=== PATIENT | male | born 1930 | race Caucasian/White ===

== ENCOUNTER 2016-03-18 05:54 | Day surgery (SDC) | payer MEDICARE, OTHER ==
--- NOTE | 2016-03-16 10:24 | RAD ---
Study: Frontal and Lateral Views of the Chest. Indication: PRE OP Comparison: September 15, 2011. Impression: Median sternotomy wires Cardiomegaly without failure. Atherosclerosis aorta. Emphysema. Improved aeration right lung base with discoid atelectasis persisting. Mild left basilar atelectasis. No new consolidation, pleural effusion, or pneumothorax. Age indeterminate anterior wedge deformity lower thoracic vertebral body noted. correlation with point tenderness recommended. Electronically signed by: Italo Cuellar MD 03/16/2016 10:22
[2016-03-18] MEDS ORDERED: SODIUM CHL 0.9% 100ML MINI-BAG 100 ML IVPB ONE (06:55)
[2016-03-18] MEDS ORDERED: LACTATED RINGERS 1,000 ML ONE (06:55)
[2016-03-18] MEDS ORDERED: ceFAZolin SODIUM 1 GM VIAL ONE (06:56)
[2016-03-18] MEDS ORDERED: ePHEDrine SULF 50 MG/ML ONE (07:00)
[2016-03-18] MEDS ORDERED: METOCLOPRAMIDE HCL INJ 10 MG/2 ML VIAL ONE (07:00)
[2016-03-18] MEDS ORDERED: PROPOFOL 200 MG/20 ML VIAL IV ONE (07:00)
[2016-03-18] MEDS ORDERED: BUPIVACAINE 0.25% W/EPI 50 ML VIAL INJ ONE (07:19)
[2016-03-18] MEDS ORDERED: fentaNYL CITRATE INJ 50 MCG/ML AMP ONE (07:37)
[2016-03-18] MEDS ORDERED: LIDOCAINE 2 % GEL 5 ML TUBE TOP ONE (07:38)
--- NOTE | 2016-03-18 11:00 | OP ---
DATE OF PROCEDURE: 03/18/16 PREOPERATIVE DIAGNOSIS: 1. Right inguinal hernia. POSTOPERATIVE DIAGNOSIS: 1. Right inguinal hernia with direct inguinal hernia and cord lipoma. PROCEDURE: 1. Repair of right inguinal hernia. SURGEON: Santhosh Pressley MD. ARTS ADMINISTRATOR: None. ANESTHESIA: General laryngeal mask anesthesia and local infiltration of 0.25% Marcaine with epinephrine. INDICATION: The patient is an 85-year-old male who developed a mass in his right groin. It is reducible, but somewhat tender. 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 The patient was brought to the Surgical Suite today for hernia repair after risks, benefits and alternatives were discussed and cardiac clearance was obtained. FINDINGS: As noted, there was a small cord lipoma and a large direct inguinal hernia with no sliding component. PROCEDURE: After adequate general anesthesia was obtained, the patient was prepped and draped in the usual sterile manner. At this point, a surgical time- out was taken. An oblique incision was fashioned in the right lower quadrant, first with infiltration of anesthesia, then with a sharp knife. Dissection was carried down through the skin and subcutaneous tissue to the external oblique fascia using electrocautery and blunt dissection. The self-retaining retractor was placed at this level. The external oblique fascia was then opened in the direction of the fibers through the external ring. Self-retaining retractor was placed at this level. The floor of the canal and the cord were dissected free from the external oblique fascia using blunt dissection and electrocautery. The nerve was identified and it was sacrificed as it extended both superiorly and inferiorly in branches through either side of the external oblique fascia. When this was done, the cord was then dissected free from the floor of the canal and the hernia sac was dissected free from the cord. The hernia sac was then incised at its base at the level of the floor of the canal and reduced below the floor of the canal. Surgimesh patch was introduced under the floor of the canal and sutured circumferentially with interrupted 2-0 Vicryl sutures. When this was done, the wound was irrigated with saline. A Surgimesh mesh patch was then sutured around the cord in the usual manner with interrupted 2-0 Vicryl sutures. Again, the wound was irrigated with saline. Hemostasis was noted to be adequate. The cord was placed back in position in the canal. The lipoma was dissected free using blunt dissection and then clamps and ligatures of 3-0 Vicryl. At this point, hemostasis was noted to be adequate. The external oblique fascia was then closed with running 3-0 Vicryl suture. The cord and subcutaneous tissue above, below and lateral to the incision were infiltrated with local anesthesia. The Twila's fascia was approximated with interrupted 3-0 Chromic suture. Skin edges were approximated with skin stapler. Sterile pressure dressing was applied. The scrotum was checked for position of the testicle. The patient was awakened and taken to the Recovery Room in good and stable condition. Estimated blood loss was less than 50 mL. All sponge, needle and instrument counts were correct. #[id number] [facility]
[2016-03-18 14:20] VITALS: BP 157/50; TEMP 98.3; O2SAT 98
== END 2016-03-18 12:30 | disposition home or self-care (01) ==
LOC: AMB 05:54
PROVIDERS: ATTEND Surgery
DX: K40.90 Unilateral inguinal hernia, without obstruction or gangrene, not specified as recurrent (principal); D17.6 Benign lipomatous neoplasm of spermatic cord; I10 Essential (primary) hypertension; E78.5 Hyperlipidemia, unspecified; I25.10 Atherosclerotic heart disease of native coronary artery without angina pectoris; Z95.1 Presence of aortocoronary bypass graft; Z87.891 Personal history of nicotine dependence; Z79.82 Long term (current) use of aspirin; Z79.899 Other long term (current) drug therapy
CPT/HCPCS: 00830; 36415; 49505; 71020; 80048; 81001; 85025; 93005; C1781; J0690; J2765; J3010; J3490; J7050; J7120

== ENCOUNTER → 2016-10-06 | Outpatient (CLI) | payer MEDICARE, OTHER | END | disposition home or self-care (01) | LOC: GMAH 10:54 | PROVIDERS: ATTEND Family Medicine | DX: Z12.5 Encounter for screening for malignant neoplasm of prostate (principal); E78.2 Mixed hyperlipidemia | CPT/HCPCS: 84443; 84550; G0103 ==

== ENCOUNTER → 2017-10-16 | Outpatient (CLI) | payer MEDICARE, OTHER | LOC: GMAH 11:17 | PROVIDERS: ATTEND Family Medicine | DX: E78.2 Mixed hyperlipidemia (principal); Z12.5 Encounter for screening for malignant neoplasm of prostate | CPT/HCPCS: 84443; 84550; G0103 ==

== ENCOUNTER → 2018-10-29 | Outpatient (CLI) | payer MEDICARE, OTHER | LOC: GMA MATASK 11:23 | PROVIDERS: ATTEND Family Medicine | DX: I10 Essential (primary) hypertension (principal); Z12.5 Encounter for screening for malignant neoplasm of prostate | CPT/HCPCS: 84443; 84550; G0103 ==

== ENCOUNTER → 2019-11-04 | Outpatient (CLI) | payer MEDICARE, OTHER | END | disposition home or self-care (01) | LOC: GMA MATASK 15:08 | PROVIDERS: ATTEND Family Medicine | DX: Z12.5 Encounter for screening for malignant neoplasm of prostate (principal); I10 Essential (primary) hypertension | CPT/HCPCS: 84443; 84550; G0103 ==